=== PATIENT | female | born 1985 | race Caucasian/White ===

== ENCOUNTER 2018-02-24 20:51 | Emergency (ER) | payer OTHER ==
[~2018-02-24] VITALS: Ht 152.4 cm; Wt 50.4 kg
[2018-02-24] MEDS ORDERED: ADDERALL 10 MG10 MG PO (20:56)
[2018-02-24] MEDS ORDERED: DOXYCYCLINE 10100 MG PO (22:48)
[2018-02-24 23:08] VITALS: BP 142/87
== END 2018-02-24 23:09 | disposition home or self-care (01) ==
LOC: ER 20:51
DX: S91.311A Laceration without foreign body, right foot, initial encounter (principal); Z88.1 Allergy status to other antibiotic agents; Z88.8 Allergy status to other drugs, medicaments and biological substances; W54.0XXA Bitten by dog, initial encounter; Y93.89 Activity, other specified; Y92.89 Other specified places as the place of occurrence of the external cause; Y99.8 Other external cause status

== ENCOUNTER 2019-04-22 16:25 | Emergency (ER) | payer BC, OTHER ==
[~2019-04-22] VITALS: Ht 152.4 cm; Wt 50.4 kg
[~2019-04-22 16:25] MED LIST: ADDERALL 10 MG10 MG PO; DOXYCYCLINE 10100 MG PO
[2019-04-22] MEDS ORDERED: NORCO 5-325 TA1 EAC1 PO (17:40)
[2019-04-22 17:41] VITALS: BP 124/71
== END 2019-04-22 17:58 | disposition home or self-care (01) ==
LOC: ER 16:25
DX: S86.092A Other specified injury of left Achilles tendon, initial encounter (principal); F90.9 Attention-deficit hyperactivity disorder, unspecified type; Z88.1 Allergy status to other antibiotic agents; Z88.8 Allergy status to other drugs, medicaments and biological substances; X50.0XXA Overexertion from strenuous movement or load, initial encounter; Y93.39 Activity, other involving climbing, rappelling and jumping off; Y92.89 Other specified places as the place of occurrence of the external cause; Y99.8 Other external cause status